=== PATIENT | male | born 2000 | race Hispanic/Latino ===

== ENCOUNTER 2018-02-19 23:57 | Emergency (ER) | payer OTHER, SELFPAY ==
[2018-02-20 00:07] VITALS: BP 121/79; PULSE 65; RESP 16; TEMP 37.1; O2SAT 98; BMI 33.7
--- NOTE | 2018-02-20 00:08 | DI.RAD.S_ITS ---
PROCEDURE: XR SHOULDER RT MIN 2V INDICATIONS: right shoulder pain TECHNIQUE: 2 views of the shoulder were acquired. COMPARISON: None. FINDINGS: Bones: No fractures or dislocations. No suspicious bony lesions. Visualized ribs appear intact. Soft tissues: No suspicious soft tissue calcifications. IMPRESSION: No acute cardiopulmonary disease process. Dictated by: Nancy Velázquez MD, PhD on 02/20/2018 at 7:57 Approved by: Nancy Velázquez MD, PhD on 02/20/2018 at 7:59
[2018-02-20 02:12] VITALS: BP 132/62; PULSE 64; RESP 18
[2018-02-20 03:20] VITALS: BP 125/59; PULSE 68; RESP 20; O2SAT 99
--- NOTE | 2018-02-20 03:35 | DI.RAD.S_ITS ---
PROCEDURE: XR CHEST 2V INDICATIONS: sharp right subscapular pain TECHNIQUE: 2 views of the chest were acquired. COMPARISON: [facility], CT, CT ANGIO CHEST, 02/20/2018, 4:29. FINDINGS: Surgical changes and devices: None. Lungs and pleura: No pleural effusions or pneumothorax. Lungs are clear. Mediastinum: Mediastinal contours are normal. Heart size is normal. Bones and chest wall: No suspicious bony abnormalities. Soft tissues appear unremarkable. IMPRESSION: No acute cardiopulmonary disease process. Dictated by: Nancy Velázquez MD, PhD on 02/20/2018 at 8:01 Approved by: Nancy Velázquez MD, PhD on 02/20/2018 at 8:03
[2018-02-20 03:45] LABS: Add Manual Diff / Slide Review NO; Basophils Percent Auto 0.7 % (0-2); Eosinophils Percent Auto 3.5 % (2-4); Hematocrit 43.3 % (41-53); Hemoglobin 15.2 g/dL (13.5-17.5); Mean Corpuscular HGB Conc 35.2 % (30-36); Mean Corpuscular Volume 82.3 fL (80-100); Neutrophils Absolute Auto 6500 /uL (3000-5900); Neutrophils Percent Auto 62.8 % (50-75); Platelet Count 269 X10^3/uL (150-400); Red Blood Cell Count 5.26 X10^6/uL (4.5-5.9); Red Cell Distribution Width 13.6 % (11.6-14.8); White Blood Cell Count 10.4 X10^3/uL (4.5-11.0)
[2018-02-20 03:51] LABS: D Dimer 273 ng/mL (<230)
[2018-02-20 03:52] LABS: BUN Creatinine Ratio 31.1 (6-22); Blood Urea Nitrogen 28 mg/dL (9-20); Calcium 9.3 mg/dL (8.4-10.2); Carbon Dioxide 28 mmol/L (22-32); Chloride 102 mmol/L (98-107); Estimated Glomerular Filt Rate > 60.0 mL/min (>60); Glucose 103 mg/dL (70-100); HEMOLYSIS 20 (0-50); Potassium 4.3 mmol/L (3.4-5.1); Sodium 140 mmol/L (137-145)
--- NOTE | 2018-02-20 04:22 | DI.CT.S_ITS ---
PROCEDURE: CT ANGIO CHEST INDICATIONS: sharp right subscapular pain w/ elevated dimer - dissection? TECHNIQUE: After the administration of intravenous contrast, 2 mm thick sections acquired from the pulmonary apices to the posterior costophrenic angles. 3-dimensional maximum intensity projection (MIP) coronal and sagittal reformats were then acquired through the thorax. For radiation dose reduction, the following was used: automated exposure control, adjustment of mA and/or kV according to patient size. COMPARISON: None. FINDINGS: Image quality: Excellent. Pulmonary arteries: Pulmonary arteries are normal in size, and demonstrate no intraluminal filling defects to suggest central pulmonary embolism. Lungs and pleura: Streaky opacities noted in the right lower lobe compatible with atelectasis versus parenchymal scarring. No pleural effusions or pneumothorax. Central and peripheral airways are patent. Mediastinum: Heart size is normal, without pericardial effusion. No mediastinal or hilar adenopathy. Thoracic aorta is normal in caliber and enhancement. Esophagus is normal in caliber, without hiatal hernia. Bones and chest wall: No suspicious bony lesions. Ribs and thoracic spine appear intact throughout. Thyroid gland is within normal limits. No axillary or supraclavicular adenopathy. Abdomen: Visualized upper abdominal solid organs appear normal in the early arterial phase of enhancement. IMPRESSION: 1. No pulmonary embolus. 2. No aortic dissection. 3. Subsegmental atelectasis versus pulmonary parenchymal scarring in the right lower lobe. Dictated by: Nancy Velázquez MD, PhD on 02/20/2018 at 7:34 Approved by: Nancy Velázquez MD, PhD on 02/20/2018 at 7:37
[2018-02-20 04:30] VITALS: BP 122/82; PULSE 72; RESP 18
[2018-02-20 04:51] LABS: Troponin I < 0.012 ng/mL (0.01-0.034)
--- NOTE | 2018-02-20 05:54 | ED_ITS ---
HPI - Extremity Problem General Chief complaint: Extremity Problem,Nontraumatic Stated complaint: pain in right shoulder hard to move History of Present Illness HPI Narrative: HPI 17-year-old male presents for evaluation of three quarters of the day of sharp right subscapular pain that is worsened with deep inspiration certain movements is largely absent rest began dramatically. Patient denies recent heavy lifting, trauma, strains, states that the pain is very hard to describe as deep inside he 's never felt anything quite like it before. Pain is nonradiating and is not electric like in nature, nor is burning, work hearing. Patient denies cough, fevers, chills. Notes normal sensation in both hands. Denies family history other than DM II. M/S/F/SocHx notable for: please see HPI; remainder reviewed with patient and in chart. ROS: Negative constitutional, eye, cardiovascular, pulmonary, GI, , MSK, skin , neurologic, psychiatric, endocrine unless noted in the HPI. Exam Gen: Pleasant, non-toxic appearing, resting comfortably. HEENT: NC, AT, PEERL, EOMI. Resp: Clear to auscultation bilaterally, normal work of breathing, no accessory muscle usage. Card: Regular rate and rhythm with no murmurs, rubs, or gallops, extremities warm and well perfused. GI: Non-tender to palpation throughout all quadrants, no focal tenderness at McBurney's point, negative Marques's sign, non-distended, no rebound or guarding. : No suprapubic tenderness to palpation. MSK: No visible deformities, strength and tone without visually appreciable deficit. Right upper extremity visually normal, 5/5 audioprosthologist strength, all fingers warm and well perfused, symmetric bilateral 2+ radial pulses, no scapular palpable abnormalities, no visible abnormalities. Skin: Normal color with no visible lesions. Neuro: AO x 3, no facial asymmetry, vision and hearing WNL. Psych: Mood and affect appropriate. Labs / Imaging: XR R shoulder: no acute abnormalities. CXR: no acute cardiopulmonary abnormalities. EKG: SR at [address]-segment elevations or depressions, T-wave inversions or new LBBB. WBC 10.4, HB 15.2, d-dimer 273, sodium 140, potassium 4.3 CTA Chest: no CT evidence of pulmonary emboli/dissection. There is some sub segmental atelectasis/scarring in the right lung. MDM Previous chart, nursing note, labs, imaging, and vitals reviewed. A: 17-year-old male presents for evaluation of three quarters of the day of sharp right subscapular pain that is worsened with deep inspiration certain movements is largely absent rest began dramatically. DDx: muscle strain, thoracic radiculopathy, pneumothorax, PE, dissection, pleurisy, pericarditis, myocarditis. Evaluation: patient with atypical description of pain, given the lack of reproducibility with palpation in the unusual nature of the sensation it may represent a muscle strain, no clear evidence of the thoracic radiculopathy, patient is felt to be low pretest probability for dissection given the lack of identifiable risk factors, however this cannot be excluded given the description the pain, a d-dimer was obtained, this was positive, subsequent CTA was without evidence of acute pathology. Given a negative troponin and an unremarkable ECG ACS, pericarditis, and myocarditis are effectively excluded. Suspect atypical muscle strands the cause of the patient's symptoms. Patient recommended to use ibuprofen and follow up with his PCP for further evaluation and care. Impression: back pain (please reference below for remainder of encounter information) Related Data Allergies Allergy/AdvReac Type Severity Reaction Status Date / Time No Known Drug Allergies Allergy Verified 02/20/18 00:07 [facility] Social History Smoking Status: Never smoker Exam Initial Vital Signs Initial Vital Signs: Vital Signs Temperature 98.7 F 02/20/18 00:07 Pulse Rate 65 02/20/18 00:07 Respiratory Rate 16 02/20/18 00:07 Blood Pressure 121/79 H 02/20/18 00:07 Pulse Oximetry 98 02/20/18 00:07 Course Orders Ordered: ED Orders 02/20/18 00:08 XR shoulder RT min 2V Stat 02/20/18 03:25 Basic Metabolic Panel Stat Complete Blood Count AUTO DIFF Stat D Dimer Stat Troponin I Stat 02/20/18 03:35 XR chest 2V Stat 02/20/18 04:22 CT angio chest Stat 02/20/18 04:23 EKG-12 Lead Stat Vital Signs - 8 hr 02/20/18 00:07 02/20/18 02:12 02/20/18 03:20 Temperature 98.7 F Pulse Rate 65 64 68 Respiratory Rate 16 18 20 Blood Pressure 121/79 H Blood Pressure [Left Arm] 132/62 H 125/59 H Pulse Oximetry 98 99 02/20/18 04:30 Temperature Pulse Rate 72 Respiratory Rate 18 Blood Pressure Blood Pressure [Left Arm] 122/82 H Pulse Oximetry MDM - Extremity (Nontraumatic) Lab Data Result diagrams: 02/20/18 03:25 02/20/18 03:25 Lab Results 02/20/18 02/20/18 02/20/18 Range/Units 03:25 03:25 03:25 WBC 10.4 (4.5-11.0) X10^3/uL RBC 5.26 (4.5-5.9) X10^6/uL Hgb 15.2 (13.5-17.5) g/dL Hct 43.3 (41-53) % MCV 82.3 (80-100) fL MCH 29.0 (26-34) PG MCHC 35.2 (30-36) % RDW 13.6 (11.6-14.8) % Plt Count 269 (150-400) X10^3/uL Neut % (Auto) 62.8 (50-75) % Lymph % (Auto) 25.0 (25-40) % Jefferson % (Auto) 8.0 (3-14) % Eos % (Auto) 3.5 (2-4) % Baso % (Auto) 0.7 (0-2) % Neut # (Auto) 6500 H (8866-1546) /uL D-Dimer 273 H (<230) ng/mL Sodium 140 (137-145) mmol/L Potassium 4.3 (3.4-5.1) mmol/L Chloride 102 (98-107) mmol/L Carbon Dioxide 28 (22-32) mmol/L BUN 28 H (9-20) mg/dL Creatinine 0.90 (0.66-1.25) mg/dL Estimated GFR > 60.0 (>60) mL/min BUN/Creatinine Ratio 31.1 H (6-22) Glucose 103 H (70-100) mg/dL Calcium 9.3 (8.4-10.2) mg/dL Troponin I (0.01-0.034) ng/mL 02/20/18 Range/Units 03:25 WBC (4.5-11.0) X10^3/uL RBC (4.5-5.9) X10^6/uL Hgb (13.5-17.5) g/dL Hct (41-53) % MCV (80-100) fL MCH (26-34) PG MCHC (30-36) % RDW (11.6-14.8) % Plt Count (150-400) X10^3/uL Neut % (Auto) (50-75) % Lymph % (Auto) (25-40) % Jefferson % (Auto) (3-14) % Eos % (Auto) (2-4) % Baso % (Auto) (0-2) % Neut # (Auto) (0484-9662) /uL D-Dimer (<230) ng/mL Sodium (137-145) mmol/L Potassium (3.4-5.1) mmol/L Chloride (98-107) mmol/L Carbon Dioxide (22-32) mmol/L BUN (9-20) mg/dL Creatinine (0.66-1.25) mg/dL Estimated GFR (>60) mL/min BUN/Creatinine Ratio (6-22) Glucose (70-100) mg/dL Calcium (8.4-10.2) mg/dL Troponin I < 0.012 (0.01-0.034) ng/mL
[2018-02-20 06:07] VITALS: BP 127/71; PULSE 68; RESP 18; O2SAT 99
== END 2018-02-20 06:12 | disposition home or self-care (01) ==
PROVIDERS: Emergency Provider Emergency Medicine
DX: M54.9 Dorsalgia, unspecified (principal)
CPT/HCPCS: 36415; 71046; 71275; 73030; 80048; 84484; 85025; 85379; 93005; 99283; 99285; Q9967